=== PATIENT | female | born 1960 | race Caucasian/White ===

== ENCOUNTER → 2018-04-10 13:54 | Outpatient (CLI) | payer OTHER, SELFPAY ==
--- NOTE | 2018-04-10 | DI.MRI.S_ITS ---
PROCEDURE: MR HEAD/BRAIN WO CON INDICATIONS: DIZZINESS AND GIDDINESS TECHNIQUE: Non-contrast axial T1 spin echo, axial T2 fast spin echo, sagittal and axial FLAIR, coronal T2 fast spin echo, axial gradient echo, axial diffusion and ADC through the brain. COMPARISON: None. FINDINGS: Image quality: Excellent. CSF spaces: Ventricles appear symmetric in size and shape. Basal cisterns are patent. No extra-axial fluid collections. Brain: No intracranial bleeds or mass effects. There is cerebral volume loss for age. There are periventricular and deep white matter chronic small vessel ischemic changes. Brainstem appears normal. Diffusion-weighted images show no acute ischemic insults. No chronic ischemic insults. Normal intravascular flow voids are present. Skull and face: Calvarial bone marrow is normal in signal. Orbits are normal. Sinuses: Sinuses and mastoids are clear. IMPRESSION: Normal brain MRI exam. Dictated by: Katya Ferrera M.D. on 04/10/2018 at 14:49 Approved by: Katya Ferrera M.D. on 04/10/2018 at 14:52
== END ==
PROVIDERS: Visit Provider Family Medicine
DX: R42 Dizziness and giddiness (principal)
CPT/HCPCS: 70551

== ENCOUNTER 2018-12-20 12:46 | Emergency (ER) | payer OTHER, SELFPAY ==
[2018-12-20 13:28] VITALS: BP 143/83; PULSE 104; RESP 18; TEMP 37.6; O2SAT 99; BMI 36.6
--- NOTE | 2018-12-20 13:35 | DI.RAD.S_ITS ---
PROCEDURE: XR CHEST 2V INDICATIONS: cough and chest congestion TECHNIQUE: 2 views of the chest were acquired. COMPARISON: None. FINDINGS: Surgical changes and devices: None. Lungs and pleura: Lungs are clear. No pleural effusions or pneumothorax. Mediastinum: Mediastinal contours are normal. Heart size is normal. Bones and chest wall: Prominent right greater than left first rib costochondral calcifications. IMPRESSION: No acute cardiopulmonary disease. Dictated by: Jairo Mccracken M.D. on 12/20/2018 at 14:22 Approved by: Jairo Mccracken M.D. on 12/20/2018 at 14:23
--- NOTE | 2018-12-20 16:12 | ED.URI ---
HPI - URI/Sore Throat <FILIPPO Guo - Last Filed: 12/20/18 21:53> General Chief Complaint: Upper Respiratory Symptoms Stated Complaint: Thinks sinus infection Time Seen by Provider: 12/20/18 15:54 Source: patient Mode of arrival: ambulatory Limitations: no limitations History of Present Illness HPI Narrative: 58-year-old healthy female that is nonsmoker here for complaint of pain into her maxillary area with pain radiating into her upper jaw and teeth over the past couple of days. She reports she has had cold-like symptoms for the past week. She reports she has had greenish nasal drainage she has also had chills. No known fever positive p.o. intake. She he has had mild cough as well. She also reports that she has some redness to her right eye that started earlier today. No trauma to the right eye. She reports that the right eye feels itchy. No purulent drainage. Related Data Previous Rx's Medication Instructions Recorded amoxicillin-pot clavulanate 1 tab PO BID #13 tab 12/20/18 erythromycin 0.5 inch EYE-RIGHT QID 7 Days #1 12/20/18 gram Allergies Allergy/AdvReac Type Severity Reaction Status Date / Time No Known Drug Allergies Allergy Verified 12/20/18 13:34 Review of Systems <FILIPPO Guo - Last Filed: 12/20/18 21:53> Constitutional Reports chills Eyes Denies change in vision, Denies eye discharge, Reports irritation, Reports itchy eyes and Denies loss of vision ENT Ears, Nose, Mouth, and Throat: Reports nasal discharge and Reports sinus pain Cardiovascular Denies chest pain, Denies irregular heart rhythm, Denies lightheadedness, Denies palpitations, Denies dyspnea, Denies dyspnea on exertion and Denies orthopnea Respiratory Reports cough, Denies dyspnea, Denies dyspnea on exertion and Denies wheezing Gastrointestinal Gastrointestinal: Denies abdominal pain, Denies change in bowel habits, Denies diarrhea, Denies nausea and Denies vomiting Genitourinary Denies hematuria, Denies flank pain, Denies urinary incontinence and Denies urinary urgency Musculoskeletal Denies back pain, Denies muscle weakness, Denies numbness and Denies tingling Neurologic Denies confusion, Denies loss of vision, Denies numbness and Denies tingling Psychiatric Denies anxiety, Denies confusion, Denies depression, Denies homicidal ideation and Denies suicidal ideation Endocrine Denies palpitations Hematologic/Lymphatic Denies easy bruising Allergic/Immunologic Reports itchy eyes and Denies wheezing PFSH <FILIPPO Guo - Last Filed: 12/20/18 21:53> Social History Smoking Status: Never smoker Social History Smoking Status: Never smoker Exam <FILIPPO Guo - Last Filed: 12/20/18 21:53> Initial Vital Signs Initial Vital Signs: Vital Signs Temperature 99.6 F 12/20/18 13:28 Pulse Rate 104 H 12/20/18 13:28 Respiratory Rate 18 12/20/18 13:28 Blood Pressure 143/83 H 12/20/18 13:28 Pulse Oximetry 99 12/20/18 13:28 Const General: cooperative and well developed Nutritional Appearance: well nourished Orientation: alert, awake, oriented x3 and not confused HENMT Head: normal to inspection and normocephalic Face and sinus: sinus tenderness maxillary Mouth: oral mucosae normal, oropharynx normal and moist mucous membranes Eyes Conjunctivae: conjunctival abnormality (Erythema) right Sclera: scleral abnormality (Erythema) right Pupils: PERRL EOM: EOM intact bilaterally Neck Neck: normal visual inspection, trachea midline, No lymphadenopathy, No midline deformity and No JVD Lymphatic: No lymphedema Resp Effort & Inspection: normal respiratory effort, able to speak in complete sentences, no respiratory distress and no use of accessory muscles Auscultation: clear to auscultation bilaterally, no rales, no rhonchi and no wheezes Cardio Rate: regular rate Rhythm: regular rhythm Heart Sounds: no click, no gallops, no murmurs and no rubs Pulses: normal peripheral pulses Skin General: no rashes or lesions noted, No jaundice and No petechiae Neuro General: alert, oriented x3, gait normal and no focal motor deficits Speech: speech normal <Miryam Martines DO - Last Filed: 12/24/18 07:21> Initial Vital Signs Initial Vital Signs: Vital Signs Temperature 99.6 F 12/20/18 13:28 Pulse Rate 104 H 12/20/18 13:28 Respiratory Rate 18 12/20/18 13:28 Blood Pressure 143/83 H 12/20/18 13:28 Pulse Oximetry 99 12/20/18 13:28 Course <FILIPPO Guo - Last Filed: 12/20/18 21:53> Orders Ordered: Discontinued Medications Amoxicillin/Clavulanate Potassium (Augmentin 875-125 Mg) 1 tab PO NOW ONE Stop: 12/20/18 17:14 Last Admin: 12/20/18 17:17 Dose: 1 tab Erythromycin (Erythromycin Ophth Oint) 1 applic EYE-RIGHT NOW ONE Stop: 12/20/18 17:27 Last Admin: 12/20/18 17:52 Dose: 1 applic Ibuprofen (Advil) 800 mg PO NOW ONE Stop: 12/20/18 17:14 Last Admin: 12/20/18 17:17 Dose: 800 mg Vital Signs - 8 hr 12/20/18 18:01 Pulse Rate 107 H Respiratory Rate 18 Blood Pressure 143/74 H Pulse Oximetry 93 <Miryam Martines DO - Last Filed: 12/24/18 07:21> Orders Ordered: Discontinued Medications Amoxicillin/Clavulanate Potassium (Augmentin 875-125 Mg) 1 tab PO NOW ONE Stop: 12/20/18 17:14 Last Admin: 12/20/18 17:17 Dose: 1 tab Erythromycin (Erythromycin Ophth Oint) 1 applic EYE-RIGHT NOW ONE Stop: 12/20/18 17:27 Last Admin: 12/20/18 17:52 Dose: 1 applic Ibuprofen (Advil) 800 mg PO NOW ONE Stop: 12/20/18 17:14 Last Admin: 12/20/18 17:17 Dose: 800 mg Vital Signs - 8 hr 12/20/18 18:01 Pulse Rate 107 H Respiratory Rate 18 Blood Pressure 143/74 H Pulse Oximetry 93 MDM - URI/Sore Throat <FILIPPO Guo - Last Filed: 12/20/18 21:53> Lab Data Lab Results 12/20/18 Range/Units 16:03 Influenza A & B (PCR) Negative (Negative) MDM Narrative Medical decision making narrative: Influenza swab was obtained and was negative. Signs and symptoms presents as viral upper respiratory infection with secondary bacterial sinusitis. She is prescribed Augmentin. Saline irrigation and nasal passages and hot showers to help with nasal congestion. Erythromycin ointment is prescribed for her right eye. Follow up with primary care provider later this week. [id number] Tylenol or Motrin as needed for any discomfort. Plenty of fluids. For any worsening symptoms return to the emergency room. <Miryam Martines DO - Last Filed: 12/24/18 07:21> Lab Data Lab Results 12/20/18 Range/Units 16:03 Influenza A & B (PCR) Negative (Negative) Discharge Plan Departure Patient Disposition: Home Clinical Impression: Sinusitis Qualifiers: Sinusitis location: maxillary Chronicity: acute Recurrence: non-recurrent Qualified Code(s): J01.00 - Acute maxillary sinusitis, unspecified Conjunctivitis Qualifiers: Conjunctivitis type: unspecified Laterality: right Qualified Code(s): H10.9 - Unspecified conjunctivitis Discharge Date/Time: 12/20/18 18:02 Interventions: ED Discharge Assessment Last Done: 12/20/18 18:01 Instructions: DI for Sinusitis Activity Restrictions/Additional Instructions: Influenza swab was obtained was negative. Signs and symptoms presents as a sinusitis secondary to a viral upper respiratory infection. Urine prescribed an antibiotic called Augmentin use as directed. Use [id number] Tylenol or Motrin as needed for any discomfort. Plenty of fluids and rest. Saline irrigation and nasal passages and hot showers to help with nasal congestion. Erythromycin is prescribed to treat conjunctivitis and use as directed. Follow up with her primary care provider. Return emergency room for any worsening symptoms. Prescriptions: New erythromycin 5 mg/gram (0.5 %) ointment 0.5 inch EYE-RIGHT QID 7 Days Qty: 1 RF: 0 amoxicillin-pot clavulanate 875-125 mg tablet 1 tab PO BID Qty: 13 RF: 0 Referrals: Tayla Desir DO [Primary Care Provider] - <Miryam Martines DO - Last Filed: 12/24/18 07:21> Cosign ED Attending Cosignature Attestation: I was immediately available in the department for consultation. This documentation has been reviewed and I agree with assessment and plan. Supervised by Miryam Martines DO
[2018-12-20 16:41] LABS: Influenza A and B by PCR Rapid Negative (Negative)
[2018-12-20] MEDS: IBUPROFEN 400 MG TABLET 800 MG PO (17:17)
[2018-12-20] MEDS: AMOXICILLIN/CLAV 875/125 MG 1 TAB PO (17:17)
[2018-12-20] MEDS: ERYTHROMYCIN OPHTH 1 GM OINT 1 APPLIC EYE-RIGHT (17:52)
[2018-12-20 18:01] VITALS: BP 143/74; PULSE 107; RESP 18; O2SAT 93
== END 2018-12-20 18:02 | disposition home or self-care (01) ==
PROVIDERS: Emergency Provider Nurse Practitioner Family; PCP Family Medicine
DX: J01.00 Acute maxillary sinusitis, unspecified (principal); H10.9 Unspecified conjunctivitis
CPT/HCPCS: 71046; 87400; 99282; 99283

== ENCOUNTER → 2021-09-18 15:30 | Outpatient (CLI) | payer OTHER, SELFPAY ==
--- NOTE | 2021-09-18 15:31 | DI.MRI.S_ITS ---
PROCEDURE: MR LUMBAR SPINE WO CON INDICATIONS: Other spondylosis with radiculopathy, lumbosacral TECHNIQUE: Noncontrast sagittal T1 spin echo and T2 fast echo, sagittal STIR, axial T1 and T2 fast spin echo through the lumbar spine. In cases with scoliosis, additional coronal T2 fast spin echo may be performed. COMPARISON: None. FINDINGS: Image quality: Excellent. Alignment and Curvature: There is grade 1 retrolisthesis of L1 on L2, L2 on L3, L3 on L4 measuring 5 mm, 2 mm and 3 mm respectively. Bone Marrow: Marrow is of normal overall signal. Mild to moderate reactive endplate changes are present at T12-L1, L3-4. No acute vertebral body compression fractures. Spinal Cord: Conus medullaris terminates at the L2 level. Visualized cord demonstrates normal signal and size. Paraspinous Soft Tissues: No paravertebral masses. Discs: Moderate desiccation is present throughout the lumbar spine. T12-L1: Mild disc bulge without spinal stenosis. Mild left foraminal narrowing with facet and ligamentum flavum hypertrophy. L1-L2: Mild disc bulge with [id number] spinal stenosis. Mild bilateral foraminal narrowing with facet and ligamentum flavum hypertrophy. Minimal epidural lipomatosis. L2-L3: Mild disc bulge with mild spinal stenosis. [id number] left and minimal to mild right foraminal narrowing with facet and ligamentum flavum hypertrophy. L3-L4: Mild disc bulge with mild spinal stenosis. Moderate left and severe right foraminal narrowing with mild flattening of the exiting L3 nerve root on the right with facet hypertrophy. L4-L5: Mild disc bulge with [id number] spinal stenosis. Moderate to severe left and moderate right foraminal narrowing with facet and ligamentum flavum hypertrophy. L5-S1: Mild disc bulge without spinal stenosis. Moderate bilateral foraminal narrowing with facet and ligamentum flavum hypertrophy. Pars defect is present at L5 bilaterally. IMPRESSION: 1. Multilevel degenerative changes with most prominent foraminal narrowing at L3-4 secondary to facet arthropathy. 2. Multilevel spinal stenosis most notable at L4-5 secondary to disc bulge with contributing effect of facet/ligamentum flavum arthropathy. 3. 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 Dictated by: Maryjane Perez M.D. on 09/18/2021 at 19:28 Approved by: Maryjane Perez M.D. on 09/18/2021 at 19:33
== END ==
PROVIDERS: PCP Family Medicine; Referring Provider Anesthesiology Pain Medicine; Visit Provider Anesthesiology Pain Medicine
DX: M47.27 Other spondylosis with radiculopathy, lumbosacral region (principal); M47.26 Other spondylosis with radiculopathy, lumbar region; M48.061 Spinal stenosis, lumbar region without neurogenic claudication; M48.07 Spinal stenosis, lumbosacral region
CPT/HCPCS: 72148